=== PATIENT | male | born 1975 | race Caucasian/White ===

== ENCOUNTER → 2020-10-20 | Outpatient (CLI) | payer OTHER ==
[~2020-10-20] MED LIST: BACTROBAN OINT22 GM EXT; BUSPIRONE HCL5 MG PO; CELEXA40 MG PO; DOXYCYCLINE HY100 MG PO; HYDROCODON-ACE1 EAC6 PO; MULTI-VITAMIN1 EACH PO; OMEPRAZOLE20 M1 PO; PERCOCET 7.5-31 EACH PO; PREDNISONE 10 M10 MG PO; SINGULAIR10 MG PO; SYNTHROID88 MCG PO; VANTIN PO
== END ==
LOC: KOH-I 13:16
DX: S82.851D Displaced trimalleolar fracture of right lower leg, subsequent encounter for closed fracture with routine healing (principal); M19.071 Primary osteoarthritis, right ankle and foot; Z98.890 Other specified postprocedural states; X58.XXXD Exposure to other specified factors, subsequent encounter
CPT/HCPCS: 73610

== ENCOUNTER → 2020-12-16 | Outpatient (CLI) | payer OTHER | LOC: KOH-I 10:13 | DX: S82.851K Displaced trimalleolar fracture of right lower leg, subsequent encounter for closed fracture with nonunion (principal); M19.071 Primary osteoarthritis, right ankle and foot; Z98.890 Other specified postprocedural states; X58.XXXD Exposure to other specified factors, subsequent encounter | CPT/HCPCS: 73610 ==

== ENCOUNTER → 2021-02-03 | Outpatient (CLI) | payer OTHER | LOC: KOH-I 09:58 | DX: S82.851A Displaced trimalleolar fracture of right lower leg, initial encounter for closed fracture (principal); X58.XXXA Exposure to other specified factors, initial encounter; Z98.890 Other specified postprocedural states | CPT/HCPCS: 73610 ==

== ENCOUNTER 2021-07-24 14:20 | Inpatient (IN) | payer OTHER ==
[~2021-07-24] VITALS: Ht 180.3 cm; Wt 120.2 kg
[2021-07-24 15:22] LABS: HEMOGLOBIN 16.3 gm/dl (14.0-17.5); RED BLOOD COUNT 5.1 M/UL (4.20-5.50); WHITE BLOOD COUNT 19.1 K/UL (4.5-11.0)
[2021-07-24 15:52] LABS: BUN/CREATININE RATIO 7 (0-10)
[2021-07-24] MEDS ORDERED: CYCLOBENZAPRIN7.5 MG PO (22:05)
[2021-07-24] MEDS ORDERED: WELLBUTRIN XL150 MG PO (22:05)
[2021-07-24] MEDS ORDERED: SINGULAIR10 MG PO (22:05)
[2021-07-24] MEDS ORDERED: VITAMIN D31250 MCG PO (22:06)
[2021-07-25 06:40] LABS: HEMOGLOBIN 14.2 gm/dl (14.0-17.5); RED BLOOD COUNT 4.49 M/UL (4.20-5.50); WHITE BLOOD COUNT 13.6 K/UL (4.5-11.0)
[2021-07-25 07:24] LABS: BUN/CREATININE RATIO 10 (0-10)
[2021-07-27 07:46] LABS: HEMOGLOBIN 14.4 gm/dl (14.0-17.5); RED BLOOD COUNT 4.82 M/UL (4.20-5.50)
[2021-07-27 07:49] LABS: WHITE BLOOD COUNT 4.1 K/UL (4.5-11.0)
[2021-07-27 08:07] LABS: BUN/CREATININE RATIO 10 (0-10)
[2021-07-27] MEDS ORDERED: CEFUROXIME500 MG PO (09:09)
== END 2021-07-27 10:10 | disposition home or self-care (01) | DRG 690 ==
LOC: ER1 14:20 → MED SURG 4 19:56 → ER1 19:56 → MED SURG 4 19:56 → ER1 21:21 → MED SURG 4 21:22 → CDU 21:50 → MED SURG 4 21:51
PROVIDERS: Physician Assistant; ADMIT Internal Medicine Infectious Disease
DX: N30.00 Acute cystitis without hematuria (principal); E03.9 Hypothyroidism, unspecified; Z20.822 Contact with and (suspected) exposure to COVID-19; F41.9 Anxiety disorder, unspecified; F32.A Depression, unspecified; M54.50 Low back pain, unspecified; B96.20 Unspecified Escherichia coli [E. coli] as the cause of diseases classified elsewhere; G89.29 Other chronic pain; Z90.89 Acquired absence of other organs; Z90.49 Acquired absence of other specified parts of digestive tract; Q54.9 Hypospadias, unspecified; Z98.890 Other specified postprocedural states; Z83.3 Family history of diabetes mellitus; Z84.2 Family history of other diseases of the genitourinary system; Z88.8 Allergy status to other drugs, medicaments and biological substances; Z79.899 Other long term (current) drug therapy
CPT/HCPCS: 36415; 71045; 80053; 81001; 82962; 83605; 85025; 87040; 87077; 87086; 87186; 99284; G0378; J0696; J1650; J1885; J2270; J2405; U0002

== ENCOUNTER → 2021-10-13 | Outpatient (CLI) | payer OTHER ==
[~2021-10-13] MED LIST changes: +CEFUROXIME500 MG PO; +CYCLOBENZAPRIN7.5 MG PO; +VITAMIN D31250 MCG PO; +WELLBUTRIN XL150 MG PO
== END ==
LOC: KOH-I 10:02
DX: M25.571 Pain in right ankle and joints of right foot (principal)
CPT/HCPCS: 73610

== ENCOUNTER → 2021-10-21 | Outpatient (CLI) | payer OTHER | LOC: MRI 09:59 | DX: M79.671 Pain in right foot (principal); Z96.661 Presence of right artificial ankle joint; M19.071 Primary osteoarthritis, right ankle and foot | CPT/HCPCS: 73723; A9577 ==

== ENCOUNTER → 2021-11-12 | Outpatient (CLI) | payer OTHER ==
[~2021-11-12] MED LIST changes: +XYZAL5 MG PO
[2021-11-12 09:51] LABS: HEMOGLOBIN 15.2 gm/dl (14.0-17.5); RED BLOOD COUNT 4.79 M/UL (4.20-5.50); WHITE BLOOD COUNT 5.7 K/UL (4.5-11.0)
[2021-11-12 10:12] LABS: BUN/CREATININE RATIO 13 (0-10)
== END ==
LOC: OPSV2 09:00
PROVIDERS: Podiatrist Foot & Ankle Surgery
DX: Z01.812 Encounter for preprocedural laboratory examination (principal)
CPT/HCPCS: 80048; 85027

== ENCOUNTER → 2021-11-18 | Day surgery (SDC) | payer OTHER ==
[~2021-11-18] VITALS: Ht 180.3 cm; Wt 122.5 kg
== END | disposition home or self-care (01) ==
LOC: OR 09:24
DX: M25.371 Other instability, right ankle (principal); M19.071 Primary osteoarthritis, right ankle and foot; M65.871 Other synovitis and tenosynovitis, right ankle and foot; E03.9 Hypothyroidism, unspecified; Z87.81 Personal history of (healed) traumatic fracture; Z88.2 Allergy status to sulfonamides; Z79.899 Other long term (current) drug therapy; Z20.822 Contact with and (suspected) exposure to COVID-19
CPT/HCPCS: C1713; J0171; J0690; J1170; J1885; J2001; J2250; J2704; J2795; J3010; J3370; J7120; Q4133

== ENCOUNTER → 2021-11-26 | Outpatient (CLI) | payer OTHER | LOC: KOH-I 13:24 | DX: S82.851D Displaced trimalleolar fracture of right lower leg, subsequent encounter for closed fracture with routine healing (principal) | CPT/HCPCS: 73610 ==

== ENCOUNTER → 2022-05-18 | Outpatient (CLI) | payer OTHER | LOC: US 11:00 | DX: N39.0 Urinary tract infection, site not specified (principal); Z88.1 Allergy status to other antibiotic agents; K76.0 Fatty (change of) liver, not elsewhere classified ==

== ENCOUNTER → 2022-06-25 | Outpatient (CLI) | payer OTHER | LOC: RAD 13:32 | DX: M53.3 Sacrococcygeal disorders, not elsewhere classified (principal); M25.551 Pain in right hip | CPT/HCPCS: 73502 ==